=== PATIENT | female | born 1965 | race American Indian/Alaskan Native ===

== ENCOUNTER 2016-09-08 16:51 | Emergency (ER) | payer SELFPAY ==
[2016-09-08] MEDS ORDERED: CATAPRES PO ONE (17:18)
[2016-09-08 21:00] VITALS: BP 190/118
--- NOTE | 2016-09-08 21:03 | Emergency Department Report ---
ED Extremity Problem HPI - General Chief complaint: Extremity Problem,Nontraumatic Stated complaint: SEVERE SWELLING/PAIN FINGERS Time Seen by Provider: 09/08/16 20:56 Source: patient Mode of arrival: Ambulatory Limitations: No Limitations - History of Present Illness Initial comments: 11-year-old female comes in with complaint of swelling in her left hand actually her fourth and fifth digit for 3 weeks. The patient denies any trauma to her hand or finger. She does minute to having this type of issue last October 2015 but resolved on its own. Patient's concerned that she may have diabetes. She does not have a health care provider at this time. Upon review of chart noticed that her blood pressure is 190/118 she was given clonidine 0.2 mg in triage. Recheck of blood pressure came down to 152/86 heart rate 83. Patient denies any history of hypertension. Allergy to lidocaine. Last LMP 08/12/2016. - Related Data Previous Rx's Medication Instructions Recorded Last Taken Type Ibuprofen [Motrin 600 MG tab] 600 mg PO Q8H PRN #30 tablet 09/08/16 Unknown Rx Sulfamethoxazole/Trimethoprim 1 each PO BID #20 tablet 09/08/16 Unknown Rx [Bactrim DS TAB] Allergies Allergy/AdvReac Type Severity Reaction Status Date / Time lidocaine Allergy Angioedema Verified 09/08/16 17:07 ED Review of Systems ROS: Stated complaint: SEVERE SWELLING/PAIN FINGERS Other details as noted in HPI Skin: other (left finger swelling and pain) ED Past Medical Hx - Medications Home Medications: Home Medications Medication Instructions Recorded Confirmed Last Taken Type Ibuprofen [Motrin 600 MG tab] 600 mg PO Q8H PRN #30 tablet 09/08/16 Unknown Rx Sulfamethoxazole/Trimethoprim 1 each PO BID #20 tablet 09/08/16 Unknown Rx [Bactrim DS TAB] ED Physical Exam - General Limitations: No Limitations - Expanded Upper Extremity Exam Left Hand Wrist exam: Present: tenderness (left fifth digit), swelling (left fifth digit), subungual hematoma - Neurological Exam Neurological exam: Present: alert, altered - Psychiatric Psychiatric exam: Present: normal affect, normal mood - Skin Skin exam: Present: warm, dry, intact, other (left fifth digit on hand edematous erythematous and tender to palpate) ED Course Vital Signs 09/08/16 09/08/16 09/08/16 17:08 17:30 20:58 Temperature 98.3 F Pulse Rate 70 71 83 Respiratory 20 Rate Blood Pressure 190/118 190/118 Blood Pressure 152/86 [Right] O2 Sat by Pulse 99 Oximetry ED Medical Decision Making - Lab Data Result diagrams: 09/08/16 21:08 09/08/16 21:08 - Medical Decision Making Been evaluated by this provider. Treatment plan is for patient to have a CBC and CMP and uric acid. Does come back negative we will treat patient for localized cellulitis. Patient verbalized understanding. Review of labs shows uric acid within normal limits is no elevated WBCs. We would treat patient as an acute cellulitis to her finger. Will have patient follow up with outpatient 3-[address] patient on Bactrim double strength 1 tablet by mouth twice a day 10 days as well as a prescription for ibuprofen 600 mg one tablet by mouth 3 times a day when necessary for pain. Verbalized understanding. Critical care attestation.: If time is entered above; I have spent that time in minutes in the direct care of this critically ill patient, excluding procedure time. ED Disposition Clinical Impression: Cellulitis and abscess of finger, unspecified Disposition: DISCHARGED TO HOME OR SELFCARE Is pt being admited?: No Does the pt Need Aspirin: No Condition: Stable Instructions: Cellulitis (ED) Additional Instructions: Advised patient's complete all medication as prescribed. Follow-up with [facility] within 3-5 days. Prescriptions: Sulfamethoxazole/Trimethoprim [Bactrim DS TAB] 1 each PO BID #20 tablet Ibuprofen [Motrin 600 MG tab] 600 mg PO Q8H PRN #30 tablet PRN Reason: Pain Referrals: PRIMARY CARE, [Primary Care Provider] - 3-5 Days [facility] [Outside] - 3-5 Days Forms: Work/School Release Form(ED)
[2016-09-08 21:26] LABS: Hematocrit 34.4 % (30.3-42.9); Hemoglobin 11.1 gm/dl (10.1-14.3); Mean Corpuscular HGB Conc 32 % (30-34); Mean Corpuscular Hemoglobin 26 pg (28-32); Mean Corpuscular Volume 81 fl (79-97); Platelet Count 286 K/mm3 (140-440); Red Blood Count 4.24 M/mm3 (3.65-5.03); White Blood Count 10.1 K/mm3 (4.5-11.0)
[2016-09-08 21:47] LABS: Chloride 100.8 mmol/L (98-107); Potassium 4.2 mmol/L (3.6-5.0); Sodium 137 mmol/L (137-145)
[2016-09-08 22:34] LABS: Anion Gap 18 mmol/L; Blood Urea Nitrogen 14 mg/dL (7-17); Carbon Dioxide 22 mmol/L (22-30); Glucose 90 mg/dL (65-100)
[2016-09-08 23:03] LABS: Uric Acid 3.9 mg/dL (3.5-7.6)
[2016-09-08] MEDS ORDERED: BACTRIM DS PO ONE (23:29)
[2016-09-08] MEDS ORDERED: MOTRIN PO ONE (23:29)
== END 2016-09-08 23:34 | disposition home or self-care (01) ==
LOC: ED 16:51
DX: L03.012 Cellulitis of left finger (principal); L02.512 Cutaneous abscess of left hand
CPT/HCPCS: 36415; 80048; 84550; 85027; 99283

== ENCOUNTER 2016-10-11 13:58 | Inpatient (IN) | payer SELFPAY ==
[2016-10-11] MEDS ORDERED: MORPHINE IV ONE (23:50)
--- NOTE | 2016-10-12 00:01 | Emergency Department Report ---
ED General Adult HPI - General Chief complaint: Extremity Injury, Upper Stated complaint: LEFT HAND PINKY INFECTED Time Seen by Provider: 10/11/16 23:39 Source: patient, RN notes reviewed, old records reviewed Mode of arrival: Ambulatory Limitations: No Limitations - History of Present Illness Initial comments: This is a 51-year-old female. She is previously unknown to me. She does not have a primary care doctor, and she is right-hand dominant. The patient was seen here in September for presumed finger infection. She was given Bactrim tablets at that time. She reports that her left distal fingertip has become progressively more black, minimally swollen and tender. She reports draining some puslike material. She also reports that on the medial aspect of her fourth digit there is some swelling and bubbling. No fevers or chills. No chest pain or shortness of breath. No tingling or numbness. No weakness. Symptoms are constant. Pain increases with palpation and range of motion. It decreases with rest. -: Gradual Location: left, upper extremity Severity scale (0 -10): 6 Quality: aching Consistency: constant Improves with: rest Worsens with: movement Associated Symptoms: denies: confusion, chest pain, cough, diaphoresis, fever/ chills, headaches, loss of appetite, malaise, nausea/vomiting, rash, seizure, shortness of breath, syncope, weakness - Related Data Previous Rx's Medication Instructions Recorded Last Taken Type Levofloxacin [Levaquin TAB] 500 mg PO QDAY #7 tablet 10/14/16 Unknown Rx amLODIPine [Norvasc] 5 mg PO QDAY #30 tablet 10/14/16 Unknown Rx traMADol [Ultram 50 MG tab] 50 mg PO Q6HR PRN #30 tablet 10/14/16 Unknown Rx Allergies Allergy/AdvReac Type Severity Reaction Status Date / Time Unable to Assess Allergy Unverified 10/11/16 14:48 ED Review of Systems ROS: Stated complaint: LEFT HAND PINKY INFECTED Other details as noted in HPI Constitutional: denies: malaise Eyes: denies: vision change ENT: denies: epistaxis Respiratory: denies: cough Cardiovascular: denies: chest pain Gastrointestinal: denies: abdominal pain Musculoskeletal: joint swelling, arthralgia, myalgia Skin: rash, lesions Neurological: denies: weakness Psychiatric: anxiety ED Past Medical Hx - Past Medical History Hx Diabetes: Yes (boderline) Additional medical history: preeclampsia - Surgical History Past Surgical History?: Yes Additional Surgical History: - Social History Smoking Status: Never Smoker Substance Use Type: None - Medications Home Medications: Home Medications Medication Instructions Recorded Confirmed Last Taken Type Levofloxacin [Levaquin TAB] 500 mg PO QDAY #7 tablet 10/14/16 Unknown Rx amLODIPine [Norvasc] 5 mg PO QDAY #30 tablet 10/14/16 Unknown Rx traMADol [Ultram 50 MG tab] 50 mg PO Q6HR PRN #30 tablet 10/14/16 Unknown Rx ED Physical Exam - General Limitations: No Limitations General appearance: alert, in no apparent distress - Head Head exam: Present: atraumatic, normocephalic - Eye Eye exam: Present: normal appearance - ENT ENT exam: Present: normal exam, normal orophraynx, mucous membranes moist, normal external ear exam - Neck Neck exam: Present: normal inspection, full ROM. Absent: tenderness, meningismus - Respiratory Respiratory exam: Present: normal lung sounds bilaterally. Absent: respiratory distress, wheezes, rales, rhonchi, stridor, decreased breath sounds - Cardiovascular Cardiovascular Exam: Present: normal rhythm, tachycardia, normal heart sounds. Absent: systolic murmur, diastolic murmur, rubs, gallop - GI/Abdominal GI/Abdominal exam: Present: soft, normal bowel sounds. Absent: distended, tenderness, guarding, rebound, rigid, pulsatile mass - Extremities Exam Extremities exam: Present: full ROM, tenderness, normal capillary refill, other (right upper extremity is unremarkable, and a left lower extremity and right lower extremity are both unremarkable. There are 2+ pulses in 4 extremities. The left distal pinky is swollen, with a necrotic tip, and purulent discharge. Swelling goes from the DIP to the pip. The tendons appear to be intact functionally, lumbricals are intact. There are 2+ pulses in 4 extremities. There is some bubbling and discoloration to the medial aspect of the fourth digit. Tendon function out is intact in the fourth digit.). Absent: calf tenderness - Back Exam Back exam: Present: normal inspection - Neurological Exam Neurological exam: Present: alert, oriented X3 - Psychiatric Psychiatric exam: Present: normal affect, normal mood - Skin Skin exam: Present: erythema ED Course Vital Signs 02/02/1910/11/16 10/11/16 14:49 23:12 23:28 Temperature 98.1 F 98.7 F 98.3 F Pulse Rate 104 H 77 72 Respiratory 18 18 18 Rate Blood Pressure 159/92 188/102 Blood Pressure 216/97 [Right] O2 Sat by Pulse 100 100 99 Oximetry 10/12/16 10/12/16 10/12/16 01:08 01:10 01:20 Temperature Pulse Rate 73 83 Respiratory 11 L 10 L 11 L Rate Blood Pressure 165/84 149/79 Blood Pressure [Right] O2 Sat by Pulse 99 100 Oximetry 10/12/16 10/12/16 10/12/16 01:30 01:40 01:50 Temperature Pulse Rate 79 85 84 Respiratory 12 13 12 Rate Blood Pressure 146/73 146/73 152/82 Blood Pressure [Right] O2 Sat by Pulse 99 99 100 Oximetry 10/12/16 10/12/16 10/12/16 02:00 02:10 02:20 Temperature Pulse Rate 88 85 93 H Respiratory 12 11 L 13 Rate Blood Pressure 158/81 158/81 168/81 Blood Pressure [Right] O2 Sat by Pulse 99 99 100 Oximetry 10/12/16 10/12/16 10/12/16 02:30 02:40 02:50 Temperature Pulse Rate 80 81 86 Respiratory 11 L 12 17 Rate Blood Pressure 162/87 162/87 154/80 Blood Pressure [Right] O2 Sat by Pulse 99 99 99 Oximetry - Reevaluation(s) Reevaluation #1: 10/12/16 00:56 Differential diagnosis: Cellulitis, osteomyelitis, vasculitis Assessment and plan: 51-year-old female with pain, swelling, warmth and redness to the fifth digit with some distal necrosis. Questionable involvement on the medial aspect of the fourth digit. Tendon function is intact. On my bedside ultrasound, there is good Doppler waveform interrogation to the ulnar and radial artery of the upper extremity. Leukocytosis is appreciated. Concern for osteomyelitis versus cellulitis versus vasculitis. Blood cultures and wound cultures will be ordered. Page is placed to orthopedic surgery, I am awaiting a call back. Patient does not have a primary care doctor that she can follow up with and she does not have insurance. Given aggressive involvement of an upper extremity digit with possible necrosis, I do not believe the patient is suitable for outpatient management at this time. She will require IV antibiotics, possible biopsy, probable debridement, possible evaluation by infectious disease. Case is discussed with the Hospital physician, Dr. Haney, who accepts the patient to her service. Reevaluation #2: 10/12/16 00:58 patient also noted to be fairly hypertensive, hydralazine is ordered for blood pressure control. Reevaluation #3: 10/12/16 01:37 Days discussed with orthopedic surgeon, Dr. Gay, his group will follow as a consult. ED Medical Decision Making - Lab Data Result diagrams: 10/13/16 04:41 10/13/16 04:41 Vital Signs 10/11/16 10/11/16 10/11/16 14:49 23:12 23:28 Temperature 98.1 F 98.7 F 98.3 F Pulse Rate 104 H 77 72 Respiratory 18 18 18 Rate Blood Pressure 159/92 188/102 Blood Pressure 216/97 [Right] O2 Sat by Pulse 100 100 99 Oximetry Lab Results 10/11/16 10/12/16 10/12/16 Range/Units 14:53 00:21 00:21 WBC 12.0 H (4.5-11.0) K/mm3 RBC 4.38 (3.65-5.03) M/mm3 Hgb 11.3 (10.1-14.3) gm/dl Hct 35.9 (30.3-42.9) % MCV 82 (79-97) fl MCH 26 L (28-32) pg MCHC 31 (30-34) % RDW 16.7 H (13.2-15.2) % Plt Count 253 (140-440) K/mm3 Lymph % (Auto) 27.3 (13.4-35.0) % Calloway % (Auto) 5.8 (0.0-7.3) % Eos % (Auto) 1.1 (0.0-4.3) % Baso % (Auto) 0.8 (0.0-1.8) % Lymph # 3.3 (1.2-5.4) K/mm3 Calloway # 0.7 (0.0-0.8) K/mm3 Eos # 0.1 (0.0-0.4) K/mm3 Baso # 0.1 (0.0-0.1) K/mm3 Seg Neutrophils % 65.0 (40.0-70.0) % Seg Neutrophils # 7.8 H (1.8-7.7) K/mm3 ESR 5 (0-20) mm/Hr Sodium 134 L (137-145) mmol/L Potassium 3.6 (3.6-5.0) mmol/L Chloride 97.9 L (98-107) mmol/L Carbon Dioxide 22 (22-30) mmol/L Anion Gap 18 mmol/L BUN 11 (7-17) mg/dL Creatinine 0.8 (0.7-1.2) mg/dL Estimated GFR > 60 ml/min BUN/Creatinine Ratio 13.75 % Glucose 93 (65-100) mg/dL POC Glucose 169 H (70-105) Calcium 9.1 (8.4-10.2) mg/dL Total Creatine Kinase (30-135) units/L 10/12/16 Range/Units 00:21 WBC (4.5-11.0) K/mm3 RBC (3.65-5.03) M/mm3 Hgb (10.1-14.3) gm/dl Hct (30.3-42.9) % MCV (79-97) fl MCH (28-32) pg MCHC (30-34) % RDW (13.2-15.2) % Plt Count (140-440) K/mm3 Lymph % (Auto) (13.4-35.0) % Calloway % (Auto) (0.0-7.3) % Eos % (Auto) (0.0-4.3) % Baso % (Auto) (0.0-1.8) % Lymph # (1.2-5.4) K/mm3 Calloway # (0.0-0.8) K/mm3 Eos # (0.0-0.4) K/mm3 Baso # (0.0-0.1) K/mm3 Seg Neutrophils % (40.0-70.0) % Seg Neutrophils # (1.8-7.7) K/mm3 ESR (0-20) mm/Hr Sodium (137-145) mmol/L Potassium (3.6-5.0) mmol/L Chloride (98-107) mmol/L Carbon Dioxide (22-30) mmol/L Anion Gap mmol/L BUN (7-17) mg/dL Creatinine (0.7-1.2) mg/dL Estimated GFR ml/min BUN/Creatinine Ratio % Glucose (65-100) mg/dL POC Glucose (70-105) Calcium (8.4-10.2) mg/dL Total Creatine Kinase 58 (30-135) units/L - EKG Data 10/12/16 01:47 Normal sinus, 85 bpm, normal intervals, normal axis, poor progression, atrial enlargement, not morphologically consistent with STEMI. - Radiology Data Radiology results: image reviewed interpreted by me: left hand x ray shows no fracture no dislocation soft tissue swelling of 5th digit Critical care attestation.: If time is entered above; I have spent that time in minutes in the direct care of this critically ill patient, excluding procedure time. ED Disposition Clinical Impression: Cellulitis of finger of left hand, Hypertensive urgency Disposition: OP ADMITTED IP TO THIS HOSP Is pt being admited?: Yes Condition: Good
[2016-10-12 00:32] LABS: Basophils % (Auto) 0.8 % (0.0-1.8); Eosinophils % (Auto) 1.1 % (0.0-4.3); Hematocrit 35.9 % (30.3-42.9); Hemoglobin 11.3 gm/dl (10.1-14.3); Mean Corpuscular HGB Conc 31 % (30-34); Mean Corpuscular Volume 82 fl (79-97); Platelet Count 253 K/mm3 (140-440); Red Blood Count 4.38 M/mm3 (3.65-5.03); Red Cell Distribution Width 16.7 % (13.2-15.2)
[2016-10-12 00:41] LABS: Mean Corpuscular Hemoglobin 26 pg (28-32)
[2016-10-12 00:51] LABS: Anion Gap 18 mmol/L; BUN/Creatinine Ratio 13.75; Blood Urea Nitrogen 11 mg/dL (7-17); Calcium 9.1 mg/dL (8.4-10.2); Carbon Dioxide 22 mmol/L (22-30); Chloride 97.9 mmol/L (98-107); Glucose 93 mg/dL (65-100); Potassium 3.6 mmol/L (3.6-5.0); Sodium 134 mmol/L (137-145)
[2016-10-12] MEDS ORDERED: CLEOCIN 600 MG/50 mL 600 MG/50 ML BAG IV ONE (00:53)
[2016-10-12 00:57] LABS: Erythrocyte Sedimentation Rate 5 mm/Hr (0-20)
[2016-10-12] MEDS ORDERED: APRESOLINE IV ONE (00:58)
--- NOTE | 2016-10-12 02:22 | Admit Criteria Form ---
Admission Criteria Documentation: CELLULITIS Clinical Indications for Admission to Inpatient Care (Place 'X' for any and all applicable criteria): Admission is indicated for ANY ONE of the following(1)(2)(3)(4)(5): [ ]I. Limb-threatening infection [ ]II. High-risk comorbid condition as indicated by ANY ONE of the following: [ ]a) Uncontrolled diabetes (eg, HbA1c greater than 10% (0.1)) [ ]b) Cirrhosis [ ]c) Neutropenia [ ]d) Asplenia [ ]e) Immunosuppression [ ]f) Symptomatic heart failure [ ]III. Failure of outpatient therapy as indicated by ALL of the following: [ ]a) Progression or no improvement after adequate trial (minimum of 48 hours, with longer period for stable lower extremity infection) [ ]b) Adequate antibiotic regimen as indicated by use of ANY ONE of the following: [ ]i) First-generation cephalosporin (e.g., cephalexin) [ ]ii) Antistaphylococcal penicillin (e.g., dicloxacillin) [ ]iii) Penicillin-allergic patient regimen (clindamycin, extended-spectrum fluoroquinolone, or doxycycline) [ ]iv) Resistant organism (eg, methicillin-resistant Staphylococcus aureus) regimen (6) [ ]c) Outpatient intravenous therapy regimen is not appropriate due to ANY ONE of the following. (7)(8)(9)(10): [ ]i) It was tried and was not successful (eg, progression of infection). [ ]ii) It is not available or cannot be arranged in a clinically appropriate time frame (e.g., the next day). [ ]iii) Clinical presentation (eg, acuity of infection, rapidity of progression, confirmed or suspected bacteremia) is judged to require ALL of the following: [ ]1) Immediate initiation of intravenous therapy ( eg, cannot wait for next day) [ ]2) Intensity of patient monitoring and observation (eg, vital sign measurement, checks for infection progression) that cannot be provided at other than inpatient level of care [ ]IV. Mental status changes [ ]V. Bacteremia [ ]. Hemodynamic instability [ ]VII. Suspected necrotizing soft tissue infection (e.g., gas in tissue)(11)( 12) [ ]VIII. Orbital infection (13)(14) [ ]IX. Associated surgical procedure (e.g., abscess drainage, debridement) not amenable to outpatient, emergency department, or observation care [ ]X. Cutaneous gangrene [ ]XI. High fever (temperature greater than 39.5 degrees C (103.1 degrees F) (oral)) not responsive to outpatient, emergency department, or observation care therapy [ X]XIII. Inpatient admission required rather than observation care (Also use Cellulitis: Observation Care as appropriate) because of ANY ONE of the following : [ ]a) Periorbital or perineal infection that is severe or worsening [ ]b) Severe pain requiring acute inpatient management [ ]c) IV fluid to replace significant ongoing (e.g., for over 24 hours) losses (greater than 3L/m2 per day) [ ]d) Compartment syndrome monitoring (17) [ ]e) Strict or protective (eg, laminar flow) isolation [ ]f) Urgent debridement or skin grafting [ ]g) Bone or joint debridement [ ]h) Immediate inpatient surgery [X ]i) Other condition, treatment or monitoring requiring inpatient admission Extended stay beyond goal length of stay may be needed for (1)(18): [ ]a) Necrotizing soft tissue infection or fasciitis [ ]b) Gram-negative infection [ ]c) Methicillin-resistant Staphylococcal aureus (MRSA) infection [ ]d) Peripheral venous insufficiency with cellulitis [ ]e) Extensive edema [ ]f) Sepsis or continued Hemodynamic instability [ ]g) Continued high fever or mental status change [ ]h) Bacteremia [ ]i) Active serious comorbid conditions ( eg, heart failure, renal insufficiency) The original [facility] content created by [employer] has been revised. The portions of the content which have been revised are identified through the use of italic text or in bold, and [facility] has neither reviewed nor approved the modified material. All other unmodified content is copyright [facility] [employer] Please see references footnoted in the original [facility] [employer] edition 2016 Admission Criteria Met: Yes
[2016-10-12] MEDS ORDERED: DULCOLAX PR PRN (02:40)
[2016-10-12] MEDS ORDERED: MILK OF MAGNESIA PO PRN (02:40)
[2016-10-12] MEDS ORDERED: ZOFRAN IV PRN (02:40)
[2016-10-12] MEDS ORDERED: APRESOLINE IV PRN (02:40)
--- NOTE | 2016-10-12 02:51 | History and Physical Report ---
History of Present Illness Date of examination: 10/12/16 History of present illness: 51 year old woman with history of borderline diabetes comes to the emergency room for worsening discolration of her finger.The patient was seen in the emergency room on September 08 for pain and discoloration of the left 5th digit. She states that this happened because her house was cold. The patient was discharged on bactrim. She states she completed antibiotic, she later developed purulent discharge. She started using hydrogen peroxide and warm water to clean the finger. She followed at [facility] and they sent her to the emergency room for further care Patient denies chest pain, palpitation, shortness of breath, cough, abdominal pain, hematochezia, dysuria, frequency, focal weakness, dysarthria, fever chills , polydipsia polyuria, hot or cold intolerance, easy bruisability, or rash or bleeding from mucosal membrane, rhinorrhea, epistaxis, earache, tinnitus, blurry vision, eye discharge, anxiety, depression. Other review of systems negative PAST SURGICAL HISTORY:None SOCIAL HISTORY:Denies alcohol, tobacco and drugs FAMILY HISTORY:Hypertension Medications and Allergies Allergies Allergy/AdvReac Type Severity Reaction Status Date / Time Unable to Assess Allergy Unverified 10/11/16 14:48 Home Medications Medication Instructions Recorded Confirmed Last Taken Type Levofloxacin [Levaquin TAB] 500 mg PO QDAY #7 tablet 10/14/16 Unknown Rx amLODIPine [Norvasc] 5 mg PO QDAY #30 tablet 10/14/16 Unknown Rx traMADol [Ultram 50 MG tab] 50 mg PO Q6HR PRN #30 tablet 10/14/16 Unknown Rx Active Meds: Active Medications Acetaminophen (Tylenol) 650 mg PO Q4H PRN PRN Reason: Pain MILD(1-3)/Fever >100.5/SARABIA Bisacodyl (Dulcolax) 10 mg [place] QDAY PRN PRN Reason: Constipation unrelieved by MOM Enoxaparin Sodium (Lovenox) 40 mg SUB-Q QDAY GRABIEL Hydralazine HCl (Apresoline) 5 mg IV Q6HR PRN PRN Reason: Hypertension Piperacillin Sod/Tazobactam Sod (Zosyn/Ns 4.5gm/100ml) mls @ 100 mls/30 min IV Q8H GRABIEL Magnesium Hydroxide (Milk Of Magnesia) 30 ml PO Q4H PRN PRN Reason: Constipation Morphine Sulfate (Morphine) 2 mg IV Q4H PRN PRN Reason: Pain, Moderate (4-6) Ondansetron HCl (Zofran) 4 mg IV Q8H PRN PRN Reason: N/V unrelieved by Reglan Exam - Physical Exam Narrative exam: Gen. appearance: Patient lying in bed, no apparent distress HEENT: Normocephalic, atraumatic, pupils equally round and reactive to light, extraocular movement intact, and no sclericterus,. No JVD or thyromegaly or nodule,neck supple, no carotid bruit ,mucous membranes moist, no exudate or erythema Heart: S1, S2, regular rate and rhythm Lungs: Clear to auscultation bilaterally, breathing comfortable Abdomen: Positive bowel sounds, nontender, nondistended, no organomegaly Extremity: Left 5th digit swollen, dark, tender, No edema, cyanosis, clubbing Skin: No rash, nodules, warm, dry Neuro: Oriented 3, cranial nerves II-12 intact, speech is fluent, motor and sensory intact - Constitutional Vitals: Temp Pulse Resp BP Pulse Ox 98.3 F 72 18 216/97 99 10/11/16 23:28 10/11/16 23:28 10/11/16 23:28 10/11/16 23:28 10/11/16 23:28 Results - Labs CBC & Chem 7: 10/13/16 04:41 10/13/16 04:41 Labs: Abnormal lab results 10/11/16 10/12/16 10/12/16 Range/Units 14:53 00:21 00:21 WBC 12.0 H (4.5-11.0) K/mm3 MCH 26 L (28-32) pg RDW 16.7 H (13.2-15.2) % Seg Neutrophils # 7.8 H (1.8-7.7) K/mm3 Sodium 134 L (137-145) mmol/L Chloride 97.9 L (98-107) mmol/L POC Glucose 169 H (70-105) Assessment and Plan Cellulitis of the finger Hypertension malignant History of borderline diabetes Admit to medicine Start IV Zosyn, consult surgery Start IV hydralazine, Norvasc, IV morphine Check hemoglobin A1c, start DVT prophylaxis follow xray of hand, wound culture
[2016-10-12] MEDS: MORPHINE IV PRN ×2 (03:11→08:44)
[2016-10-12] MEDS ORDERED: ZOSYN/NS 4.5GM/100ML 4.5 GM/100 ML VIAL IV ONE (04:30)
[2016-10-12] MEDS: ZOSYN/NS 4.5GM/100ML 4.5 GM/100 ML VIAL IV SCH ×3 (04:33→21:01)
[2016-10-12] MEDS: TYLENOL PO PRN ×3 (05:41→20:56)
--- NOTE | 2016-10-12 09:04 | XRay Report ---
LEFT HAND, 2 VIEWS: HISTORY: Left hand pain. FINDINGS: There is mild soft tissue swelling at the level of the metacarpophalangeal joints. Normal bone mineralization. No acute osseous findings or joint pathology is appreciated. IMPRESSION: Mild soft tissue swelling.
[2016-10-12] MEDS ORDERED: NORVASC PO SCH (10:00)
--- NOTE | 2016-10-12 10:45 | Event Note ---
Date: 10/12/16 Patient with left 5th finger dark. Celullitis versus gangrene. She was seen and examined. Continue iv Antibiotics.
[2016-10-12] MEDS ORDERED: MORPHINE IV PRN (11:10)
[2016-10-12] MEDS: NORVASC PO SCH (11:14)
[2016-10-12] MEDS: LOVENOX SUB-Q SCH (11:15)
[2016-10-12] MEDS ORDERED: FLUARIX QUAD 2016-2017(36 MOS+) IM ONE (12:00)
[2016-10-12] MEDS ORDERED: MORPHINE IV ONE (12:00)
--- NOTE | 2016-10-12 14:41 | Consultation ---
History of Present Illness - HPI Consult date: 10/12/16 Consult reason: joint pain Medications and Allergies Allergies Allergy/AdvReac Type Severity Reaction Status Date / Time Unable to Assess Allergy Unverified 10/11/16 14:48 Home Medications Medication Instructions Recorded Confirmed Last Taken Type Ibuprofen [Motrin 600 MG tab] 600 mg PO Q8H PRN #30 tablet 09/08/16 Unknown Rx Sulfamethoxazole/Trimethoprim 1 each PO BID #20 tablet 09/08/16 Unknown Rx [Bactrim DS TAB] Active Meds: Active Medications Acetaminophen (Tylenol) 650 mg PO Q4H PRN PRN Reason: Pain MILD(1-3)/Fever >100.5/SAR[place]IA Last Admin: 10/12/16 05:41 Dose: 650 mg Amlodipine Besylate (Norvasc) 5 mg PO QDAY [facility] Last Admin: 10/12/16 11:14 Dose: 5 mg Bisacodyl (Dulcolax) 10 mg DC QDAY PRN PRN Reason: Constipation unrelieved by MOM Enoxaparin Sodium (Lovenox) 40 mg SUB-Q QDAY [facility] Last Admin: 10/12/16 11:15 Dose: 40 mg Hydralazine HCl (Apresoline) 5 mg IV Q6HR PRN PRN Reason: Hypertension Last Admin: 10/12/16 05:42 Dose: 5 mg Piperacillin Sod/Tazobactam Sod (Zosyn/Ns 4.5gm/100ml) 4.5 gm in 100 mls @ 200 mls/hr IV Q8H [facility] Last Admin: 10/12/16 12:45 Dose: Not Given Magnesium Hydroxide (Milk Of Magnesia) 30 ml PO Q4H PRN PRN Reason: Constipation Morphine Sulfate (Morphine) 4 mg IV Q4H PRN PRN Reason: Pain , Severe (7-10) Ondansetron HCl (Zofran) 4 mg IV Q8H PRN PRN Reason: N/V unrelieved by Reglan Assessment and Plan 51 year old woman with history of borderline diabetes admited by emergency room for worsening discoloration of her finger.The patient was seen in the emergency room on September 08 for pain and discoloration of the left 5th digit. She states that this happened because her house was cold. The patient was discharged on bactrim. She complains that her hand hurts nd that the skin changes have now spread to the 4th digit. There is a necrotic changes at the tip of the 5th finger and some pus discharge. There is good temperature on the forearm and hand. the 4th and 5th fingers are dusky/purplish. limited AROM of 5th DIP joint. Nail appears loose with a serous small drainage. Impression paronichia of 5th finger; Cyanosis, vascular impairment? REC antibiotics and observation.
--- NOTE | 2016-10-12 14:43 | Consultation ---
History of Present Illness - Reason for Consult Consult date: 10/12/16 discoloration of the left fifth digit Requesting physician: MARAL TRUJILLO - History of Present Illness Patient presents with discoloration pain and gangrenous tip of the left fifth digit. Patient originally presented a month ago to the emergency room with the painful swollen left digit and was treated with antibiotics. Patient reports the worsening of the discoloration of the finger and more pain. Patient feels that this started because her hand was cold. Patient reports pain in her left digits if touching something called. However, she does not have the symptoms in the other hand or feet. Patient denies any history of DVT, abnormal heart rhythm, or any symptoms that could be consistent with thoracic outlet syndrome. 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 Patient denies ever smoking. Past History Past Medical History: No medical history, diabetes Past Surgical History: No surgical history Social history: denies: smoking, alcohol abuse, IV drug use Family history: hypertension Medications and Allergies Allergies Allergy/AdvReac Type Severity Reaction Status Date / Time Unable to Assess Allergy Unverified 10/11/16 14:48 Home Medications Medication Instructions Recorded Confirmed Last Taken Type Ibuprofen [Motrin 600 MG tab] 600 mg PO Q8H PRN #30 tablet 09/08/16 Unknown Rx Sulfamethoxazole/Trimethoprim 1 each PO BID #20 tablet 09/08/16 Unknown Rx [Bactrim DS TAB] Active Meds: Active Medications Acetaminophen (Tylenol) 650 mg PO Q4H PRN PRN Reason: Pain MILD(1-3)/Fever >100.5/[place] Last Admin: 10/12/16 05:41 Dose: 650 mg Amlodipine Besylate (Norvasc) 5 mg PO QDAY [facility] Last Admin: 10/12/16 11:14 Dose: 5 mg Bisacodyl (Dulcolax) 10 mg UT QDAY PRN PRN Reason: Constipation unrelieved by MOM Enoxaparin Sodium (Lovenox) 40 mg SUB-Q QDAY [facility] Last Admin: 10/12/16 11:15 Dose: 40 mg Hydralazine HCl (Apresoline) 5 mg IV Q6HR PRN PRN Reason: Hypertension Last Admin: 10/12/16 05:42 Dose: 5 mg Piperacillin Sod/Tazobactam Sod (Zosyn/Ns 4.5gm/100ml) 4.5 gm in 100 mls @ 200 mls/hr IV Q8H [facility] Last Admin: 10/12/16 12:45 Dose: Not Given Magnesium Hydroxide (Milk Of Magnesia) 30 ml PO Q4H PRN PRN Reason: Constipation Morphine Sulfate (Morphine) 4 mg IV Q4H PRN PRN Reason: Pain , Severe (7-10) Ondansetron HCl (Zofran) 4 mg IV Q8H PRN PRN Reason: N/V unrelieved by Reglan Review of Systems All systems: negative Exam - Constitutional Vitals: Temp Pulse Resp BP Pulse Ox 98.5 F 107 H 18 130/78 99 10/12/16 08:00 10/12/16 08:00 10/12/16 08:00 10/12/16 11:14 10/12/16 08:00 General appearance: Present: no acute distress, well-nourished - EENT Eyes: Present: PERRL, EOM intact ENT: hearing intact - Neck Neck: Present: supple, normal ROM. Absent: masses or JVD, carotid bruits - Respiratory Respiratory effort: normal Respiratory: bilateral: CTA - Cardiovascular Rhythm: regular - Extremities Extremities: pulses intact (normal appearing bilateral axillary, brachial, radial pulses), pulses symmetrical, No edema, normal temperature Extremity abnormal: cyanosis (left fifth digit), black (gangrenous tip of the left fifth digit), tenderness (left fifth digit) - Abdominal General gastrointestinal: Present: deferred Female genitourinary: Present: deferred - Rectal Rectal Exam: deferred - Integumentary Integumentary: Present: clear - Musculoskeletal Musculoskeletal: strength equal bilaterally - Psychiatric Psychiatric: appropriate mood/affect, intact judgment & insight, memory intact, cooperative Results - Labs CBC & Chem 7: 10/12/16 00:21 10/12/16 00:21 Assessment and Plan Gangrenous tip and discoloration of the left fifth digit. No evidence of arterial occlusive disease given intact pulses and warm hands. Doubt Raynaud's phenomenon because symptoms are localized to the digits on the left hand. This is most likely a focal digital lesion. However, although less likely, this could potentially be an embolization from a proximal source. That includes potentially heart, thoracic aorta, or any vessels in the left arm. There is no evidence the patient has a thoracic outlet syndrome. Plan: Will rule out embolic source by obtaining left upper extremity arterial duplex. We'll also obtain a CTA of the chest to rule out a thoracic aortic involvement. A consideration should be given to 2-D echo to rule out any potential thrombus in the heart as well as to rule out patent foramen ovale which could potentially be a source of paradoxical embolus. If all of this is negative, patient should consider seeing a a hand specialist.
[2016-10-12] MEDS ORDERED: NACL ONE (15:56)
--- NOTE | 2016-10-12 17:01 | Cat Scan Report ---
CTA chest: History: Gangrenous finger. Evaluation for embolus source. Protocol used for transverse images through the chest and upper abdomen with coronal and sagittal 2-D reformatted images as well as a 3-D image. The pulmonary vessels are well opacified. No filling defects. The cardiac chambers show no filling defects. The thoracic aorta is normal in size and contour. No filling defects. The subclavian arteries are not optimally visualized there is no obvious filling defect or contour deformity identified. No evidence of hilar or mediastinal adenopathy. The central airways are patent. The lungs are clear with no evidence of nodule, infiltrate, or pleural abnormality. Impressions: Unremarkable exam.
[2016-10-13 05:11] LABS: Basophils % (Auto) 0.8 % (0.0-1.8); Eosinophils % (Auto) 2.5 % (0.0-4.3); Hematocrit 33.5 % (30.3-42.9); Hemoglobin 10.9 gm/dl (10.1-14.3); Mean Corpuscular HGB Conc 33 % (30-34); Mean Corpuscular Hemoglobin 26 pg (28-32); Mean Corpuscular Volume 81 fl (79-97); Platelet Count 261 K/mm3 (140-440); Red Blood Count 4.15 M/mm3 (3.65-5.03); Red Cell Distribution Width 16.8 % (13.2-15.2); White Blood Count 9.4 K/mm3 (4.5-11.0)
[2016-10-13 05:22] LABS: Anion Gap 17 mmol/L; BUN/Creatinine Ratio 16.25; Blood Urea Nitrogen 13 mg/dL (7-17); Calcium 8.8 mg/dL (8.4-10.2); Carbon Dioxide 22 mmol/L (22-30); Chloride 100.1 mmol/L (98-107); Glucose 105 mg/dL (65-100); Sodium 135 mmol/L (137-145)
[2016-10-13] MEDS: ZOSYN/NS 4.5GM/100ML 4.5 GM/100 ML VIAL IV SCH ×3 (05:28→19:07)
--- NOTE | 2016-10-13 08:18 | Vascular Lab Report ---
UPPER EXTREMITY ARTERIAL DUPLEX: REASON FOR EXAM: Gangrenous left fifth digit. COMMENTS ON THE RIGHT: Triphasic waveforms are seen proximally. Triphasic waveforms are seen distally. No significant velocity gradients are identified. No significant plaque is identified. Findings are consistent with normal perfusion. COMMENTS ON THE LEFT: Triphasic waveforms are seen proximally. Triphasic waveforms are seen distally. No significant velocity gradients are identified. No significant plaque is identified. Findings are consistent with normal perfusion. IMPRESSION: RIGHT: Essentially normal arterial flow. No evidence of aneurysmal degeneration LEFT:Essentially normal arterial flow. No evidence of aneurysmal degeneration.
--- NOTE | 2016-10-13 08:35 | Event Note ---
Date: 10/13/16 Arterial duplex and chest CTA reviewed. No evidence of arterial occlusive or aneurysmal disease that would be contributing to the gangrenous changes and fifth digit. No further vascular intervention would be of any benefit. This is most likely a local issue not related to overall circulation. Consider hand surgical evaluation.
[2016-10-13] MEDS ORDERED: MORPHINE ONE (09:13)
[2016-10-13] MEDS: MORPHINE IV PRN (09:20)
[2016-10-13] MEDS: LOVENOX SUB-Q SCH (10:56)
[2016-10-13] MEDS: NORVASC PO SCH (10:56)
--- NOTE | 2016-10-13 14:45 | Progress Note ---
Assessment and Plan Assessment and plan: Cellulitis left 5th finger, with dark gangrenous area. Continue IV antibiotics. Vascular surgery and orthopedic surgeon consulted. Gangrene part of left fifth finger Hypertension. Amlodipine 5 mg by mouth daily Borderline diabetes. Fingerstick glucose before every meal and at bedtime Hyponatremia. History Interval history: pain, dark discoloration left 5th finger, No fever Hospitalist Physical - Physical exam Narrative exam: Gen appearance : Not in acute distress HEENT: Normocephalic atraumatic Neck: supple, no JVD. Lungs: Clear to auscultation bilaterally, no wheezing, Heart: S1 and S2 regular, no murmurs, rubs or gallop Abdomen: soft, non-tender, non-distended, normal bowel sounds Extremities: Left 5th finger discolored,dark, area with drainage, no clubbing or cyanosis Neuro : Awake alert oriented 3, no focal signs Psych:calm - Constitutional Vitals: Temp Pulse Resp BP Pulse Ox 98.2 F 78 18 138/81 100 10/13/16 08:18 10/13/16 10:56 10/13/16 08:18 10/13/16 10:56 10/13/16 08:55 General appearance: Present: no acute distress, well-nourished Results - Labs CBC & Chem 7: 10/13/16 04:41 10/13/16 04:41 Labs: Laboratory Last Values WBC 9.4 K/mm3 (4.5-11.0) 10/13/16 04:41 RBC 4.15 M/mm3 (3.65-5.03) 10/13/16 04:41 Hgb 10.9 gm/dl (10.1-14.3) 10/13/16 04:41 Hct 33.5 % (30.3-42.9) 10/13/16 04:41 MCV 81 fl (79-97) 10/13/16 04:41 MCH 26 pg (28-32) L 10/13/16 04:41 MCHC 33 % (30-34) 10/13/16 04:41 RDW 16.8 % (13.2-15.2) H 10/13/16 04:41 Plt Count 261 K/mm3 (140-440) 10/13/16 04:41 Lymph % (Auto) 21.4 % (13.4-35.0) 10/13/16 04:41 Garland % (Auto) 5.7 % (0.0-7.3) 10/13/16 04:41 Eos % (Auto) 2.5 % (0.0-4.3) 10/13/16 04:41 Baso % (Auto) 0.8 % (0.0-1.8) 10/13/16 04:41 Lymph # 2.0 K/mm3 (1.2-5.4) 10/13/16 04:41 Garland # 0.5 K/mm3 (0.0-0.8) 10/13/16 04:41 Eos # 0.2 K/mm3 (0.0-0.4) 10/13/16 04:41 Baso # 0.1 K/mm3 (0.0-0.1) 10/13/16 04:41 Seg Neutrophils % 69.6 % (40.0-70.0) 10/13/16 04:41 Seg Neutrophils # 6.6 K/mm3 (1.8-7.7) 10/13/16 04:41 ESR 5 mm/Hr (0-20) 10/12/16 00:21 Sodium 135 mmol/L (137-145) L 10/13/16 04:41 Potassium 4.0 mmol/L (3.6-5.0) 10/13/16 04:41 Chloride 100.1 mmol/L (98-107) 10/13/16 04:41 Carbon Dioxide 22 mmol/L (22-30) 10/13/16 04:41 Anion Gap 17 mmol/L 10/13/16 04:41 BUN 13 mg/dL (7-17) 10/13/16 04:41 Creatinine 0.8 mg/dL (0.7-1.2) 10/13/16 04:41 Estimated GFR > 60 ml/min 10/13/16 04:41 BUN/Creatinine Ratio 16.25 % 10/13/16 04:41 Glucose 105 mg/dL (65-100) H 10/13/16 04:41 POC Glucose 169 (70-105) H 10/11/16 14:53 Hemoglobin A1c 5.5 % (4-6) 10/12/16 00:21 Calcium 8.8 mg/dL (8.4-10.2) 10/13/16 04:41 Total Creatine Kinase 58 units/L (30-135) 10/12/16 00:21 C-Reactive Protein 0.30 mg/dL (0.00-1.30) 10/12/16 00:21
--- NOTE | 2016-10-13 14:52 | Progress Note ---
Assessment and Plan - Patient Problems (1) Cellulitis of finger of left hand Current Visit: Yes Status: Acute Plan to address problem: Paronychia vs. Atypical Raynaud's cs. fingertip gangrene. Minimal swelling with serous drainage from the nail, nailbed elevated. The finger tip is discolored, not obviously demarcated. I believe that she may need a fingertip amputation,however will wait to the tip is demarcated well. No evidence of flexor tenosynovitis Subjective Date of service: 10/13/16 Interval history: ingertip discoloration, vascular evaluation reviewed. Objective Vital signs: Vital Signs - 12hr 10/13/16 10/13/16 10/13/16 08:18 08:55 10:56 Temperature 98.2 F Pulse Rate 78 Pulse Rate [ 78 Right Radial] Respiratory 18 Rate Blood Pressure 138/81 Blood Pressure 138/81 [Right Arm] O2 Sat by Pulse 97 100 Oximetry - Labs CBC & BMP: 10/13/16 04:41 10/13/16 04:41 Labs: Abnormal lab results 10/13/16 10/13/16 Range/Units 04:41 04:41 MCH 26 L (28-32) pg RDW 16.8 H (13.2-15.2) % Sodium 135 L (137-145) mmol/L Glucose 105 H (65-100) mg/dL
[2016-10-13] MEDS: TYLENOL PO PRN (17:17)
[2016-10-14] MEDS: ZOSYN/NS 4.5GM/100ML 4.5 GM/100 ML VIAL IV SCH ×2 (03:48→11:58)
[2016-10-14] MEDS: TYLENOL PO PRN (03:50)
[2016-10-14] MEDS: NORVASC PO SCH (09:48)
[2016-10-14] MEDS: LOVENOX SUB-Q SCH (09:51)
[2016-10-14 16:17] VITALS: BP 128/78
--- NOTE | 2016-10-14 17:20 | Progress Note ---
Hospitalist Physical - Constitutional Vitals: Temp Pulse Resp BP Pulse Ox 98.1 F 78 16 128/78 98 10/14/16 16:00 10/14/16 16:00 10/14/16 16:00 10/14/16 16:00 10/14/16 08:00 General appearance: Present: no acute distress, well-nourished Results - Labs CBC & Chem 7: 10/13/16 04:41 10/13/16 04:41 Labs: Laboratory Last Values WBC 9.4 K/mm3 (4.5-11.0) 10/13/16 04:41 RBC 4.15 M/mm3 (3.65-5.03) 10/13/16 04:41 Hgb 10.9 gm/dl (10.1-14.3) 10/13/16 04:41 Hct 33.5 % (30.3-42.9) 10/13/16 04:41 MCV 81 fl (79-97) 10/13/16 04:41 MCH 26 pg (28-32) L 10/13/16 04:41 MCHC 33 % (30-34) 10/13/16 04:41 RDW 16.8 % (13.2-15.2) H 10/13/16 04:41 Plt Count 261 K/mm3 (140-440) 10/13/16 04:41 Lymph % (Auto) 21.4 % (13.4-35.0) 10/13/16 04:41 Dillon % (Auto) 5.7 % (0.0-7.3) 10/13/16 04:41 Eos % (Auto) 2.5 % (0.0-4.3) 10/13/16 04:41 Baso % (Auto) 0.8 % (0.0-1.8) 10/13/16 04:41 Lymph # 2.0 K/mm3 (1.2-5.4) 10/13/16 04:41 Dillon # 0.5 K/mm3 (0.0-0.8) 10/13/16 04:41 Eos # 0.2 K/mm3 (0.0-0.4) 10/13/16 04:41 Baso # 0.1 K/mm3 (0.0-0.1) 10/13/16 04:41 Seg Neutrophils % 69.6 % (40.0-70.0) 10/13/16 04:41 Seg Neutrophils # 6.6 K/mm3 (1.8-7.7) 10/13/16 04:41 ESR 5 mm/Hr (0-20) 10/12/16 00:21 Sodium 135 mmol/L (137-145) L 10/13/16 04:41 Potassium 4.0 mmol/L (3.6-5.0) 10/13/16 04:41 Chloride 100.1 mmol/L (98-107) 10/13/16 04:41 Carbon Dioxide 22 mmol/L (22-30) 10/13/16 04:41 Anion Gap 17 mmol/L 10/13/16 04:41 BUN 13 mg/dL (7-17) 10/13/16 04:41 Creatinine 0.8 mg/dL (0.7-1.2) 10/13/16 04:41 Estimated GFR > 60 ml/min 10/13/16 04:41 BUN/Creatinine Ratio 16.25 % 10/13/16 04:41 Glucose 105 mg/dL (65-100) H 10/13/16 04:41 POC Glucose 169 (70-105) H 10/11/16 14:53 Hemoglobin A1c 5.5 % (4-6) 10/12/16 00:21 Calcium 8.8 mg/dL (8.4-10.2) 10/13/16 04:41 Total Creatine Kinase 58 units/L (30-135) 10/12/16 00:21 C-Reactive Protein 0.30 mg/dL (0.00-1.30) 10/12/16 00:21
--- NOTE | 2016-10-14 17:46 | Discharge Summary ---
Providers - Providers Date of Admission: 10/12/16 02:40 Date of discharge: 10/14/16 Attending physician: DANILO MARIE 10/12/16 13:36 Consult to Physician [CONS] Routine Consulting Provider: NOMAN RHODES Reason For Exam: dark discoloration left 5th finger Place consult to:: Dr. Rhodes Notified:: OFFICE Phone number called:: [phone] Was contact made?: Yes If yes, spoke with:: BLACK Time called:: 14:02 Comment:: CARRILLO NOTIFIED Primary care physician: GOSPEL SINGER Hospitalization Condition: Good Hospital course: Patient is 51 yo presented with pain and discoloration left 5th finger. She was diagnosed with cellulitis and gangrene left 5th finger. She was started on iv Antibiotics and admitted. Orthopedic surgeon and Vasc surg were consulted. Arterial Doppler was unremarkable. Orthopedic Surgeon stated patient may need amputation of finger but will need to wait for demarcation. Patient felt better after few days. She was therefore discharged home on oral Levaquin to follow with Orthopedic Surgeon as outpatient. Total time spent on discharge, 34 mins Disposition: DISCHARGED TO HOME OR SELFCARE - Discharge Diagnoses (1) Cellulitis of finger of left hand Status: Acute (2) Hypertensive urgency Status: Acute (3) Gangrene of finger Status: Acute (4) Borderline type 2 diabetes mellitus Status: Chronic Core Measure Documentation - Palliative Care Palliative Care/ Comfort Measures: Not Applicable - Core Measures Any of the following diagnoses?: none Exam - Physical Exam Narrative exam: Gen appearance : Not in acute distress HEENT: Normocephalic atraumatic Neck: supple, no JVD. Lungs: Clear to auscultation bilaterally, no wheezing, Heart: S1 and S2 regular, no murmurs, rubs or gallop Abdomen: soft, non-tender, non-distended, normal bowel sounds Extremities: Left 5th finger discolored,dark, no more drainage, no clubbing or cyanosis Neuro : Awake alert oriented 3, no focal signs Psych:calm - Constitutional Vitals: Temp Pulse Resp BP Pulse Ox 98.1 F 78 16 128/78 98 10/14/16 16:00 10/14/16 16:00 10/14/16 16:00 10/14/16 16:00 10/14/16 08:00 Plan Activity: no restrictions Diet: low salt Additional Instructions: 1.Follow up with PCP in 1 week. 2.Follow up with Dr. Adorno in 1 week Follow up with: PRIMARY CARE, [Primary Care Provider] - 3-5 Days Prescriptions: amLODIPine [Norvasc] 5 mg PO QDAY #30 tablet Levofloxacin [Levaquin TAB] 500 mg PO QDAY #7 tablet traMADol [Ultram 50 MG tab] 50 mg PO Q6HR PRN #30 tablet PRN Reason: Pain
== END 2016-10-14 19:00 | disposition home or self-care (01) | DRG 603 ==
LOC: ED 13:58 → 3A 10-12 02:40
PROVIDERS: ADMIT Internal Medicine; ATTEND Internal Medicine
DX: L03.012 Cellulitis of left finger (principal); I96 Gangrene, not elsewhere classified; I16.0 Hypertensive urgency; I10 Essential (primary) hypertension; L81.9 Disorder of pigmentation, unspecified; Z82.49 Family history of ischemic heart disease and other diseases of the circulatory system
CPT/HCPCS: 36415; 71275; 80048; 82550; 82962; 83036; 85025; 85652; 86140; 87040; 87076; 87116; 87186; 90686; 93005; 93010; 93306; 96365; 96374; 96375; J0360; J1650; J2270; J2405; J2543; Q9967

== ENCOUNTER 2016-12-21 18:46 | Inpatient (IN) | payer SELFPAY ==
[2016-12-21 21:04] LABS: Basophils % (Auto) 0.6 % (0.0-1.8); Eosinophils % (Auto) 1.8 % (0.0-4.3); Hematocrit 32.6 % (30.3-42.9); Hemoglobin 10.6 gm/dl (10.1-14.3); Mean Corpuscular HGB Conc 33 % (30-34); Mean Corpuscular Hemoglobin 27 pg (28-32); Mean Corpuscular Volume 84 fl (79-97); Platelet Count 302 K/mm3 (140-440); Red Blood Count 3.88 M/mm3 (3.65-5.03); Red Cell Distribution Width 15.8 % (13.2-15.2)
[2016-12-21 21:27] LABS: Anion Gap 17 mmol/L; BUN/Creatinine Ratio 16.66; Blood Urea Nitrogen 15 mg/dL (7-17); Calcium 8.6 mg/dL (8.4-10.2); Carbon Dioxide 24 mmol/L (22-30); Chloride 104.8 mmol/L (98-107); Glucose 96 mg/dL (65-100); Potassium 3.4 mmol/L (3.6-5.0); Sodium 142 mmol/L (137-145)
--- NOTE | 2016-12-22 00:21 | Emergency Department Report ---
Upper Extremity - HPI Chief Complaint: Extremity Problem,Nontraumatic Stated Complaint: BACTERIAL INFECTION/LEFT HAND Time Seen by Provider: 12/21/16 23:40 Upper Extremity: Left Hand (pain that feels burning), Left Index Finger ( discoloration of finger she started 1 week ago.), Left Little Finger (discolored ) Occurred When: >5 Days Mechanism: Other (similar incident in the past) Severity: severe Symptoms: Yes Pain with Movement, Yes Limited Range of Movement (to fingers and hand due to pain. left hand), Yes Weakness (left hand), Yes Bruising/ Ecchymosis, No Deformity, No Numbness, No Swelling, No Laceration or Abrasion Other History: Patient presented to emergency room report that she is having pain to her left hand with discoloration of fingers. Patient was here on October and was treated per patient for bacterial infection patient Brianna she says she took all her antibiotic and is referred to a hand specialist. She says she could not afford this. Patient says she went to [place] and she was treated with penicillin. Initially she came in on October for discoloration of her left fist patient she said became blackened but then it got better. She says she now has noticed that the second digit to left hand is now getting discolored. She reports that her left hand is painful at 10 out of 10. She denies smoking. Denies any fever or chills. She reports there is an odor coming from her finger. She says she was told that she was pre diabetic a long time ago but her blood sugar stable and she is not taking medication. She also has a history of hypertension. Her last visit to the hospital she was seen by Dr. Burciaga's service who referred her to the hand specialist as outpatient. ED Review of Systems ROS: Stated complaint: BACTERIAL INFECTION/LEFT HAND Other details as noted in HPI Comment: All other systems reviewed and negative Constitutional: denies: chills, fever Respiratory: no symptoms reported Cardiovascular: denies: chest pain, palpitations, edema, syncope Gastrointestinal: denies: abdominal pain, nausea, vomiting Skin: change in color (to fingers with pain to left hand) Neurological: denies: headache, numbness, paresthesias, confusion ED Past Medical Hx - Past Medical History Previous Medical History?: Yes Hx Hypertension: No Hx Congestive Heart Failure: No Hx Diabetes: Yes (boderline) Hx Sickle Cell Disease: Yes (trait) Hx Asthma: No Hx HIV: No Additional medical history: preeclampsia - Surgical History Past Surgical History?: Yes Additional Surgical History: - Family History Family history: hypertension - Social History Smoking Status: Never Smoker Substance Use Type: Alcohol - Medications Home Medications: Home Medications Medication Instructions Recorded Confirmed Last Taken Type Levofloxacin [Levaquin TAB] 500 mg PO QDAY #7 tablet 10/14/16 Unknown Rx amLODIPine [Norvasc] 5 mg PO QDAY #30 tablet 10/14/16 Unknown Rx traMADol [Ultram 50 MG tab] 50 mg PO Q6HR PRN #30 tablet 10/14/16 Unknown Rx Upper Extremity Exam - Exam General: Vital signs noted. No distress. Alert and acting appropriately. This is a 51-year-old female who is very tearful complaining of pain to her left hand. Head and Torso: No HEENT Abnormality, No Neck Tenderness, No Chest/Lungs Abnormality, No Abdominal Tenderness, No Back Tenderness Shoulder Exam: Yes Normal Range of Motion in Shoulder, No Shoulder Tenderness, No Clavicle Tenderness, No Shoulder Deformity, No AC Joint Tenderness Arm Exam: No Arm/Humerus Tenderness, No Arm Deformity Elbow: Yes Normal Range of Motion in Elbow, No Elbow Tenderness, No Elbow Deformity Forearm: No Forearm Tenderness, No Forearm Deformity, No Pain with Pronation, No Pain with Supination Wrist: Yes Normal ROM in Wrist, No Wrist Tenderness, No Wrist Deformity Hand: Yes Hand Tenderness (to palms and fingers.), Yes Digit Tenderness (left second and fifth digits.), No Hand Deformity, No Normal ROM in Digit(s) (Sushil range of motion due to pain.), No Digit(s) Deformity, No Tendon Dysfunction CMS Exam: Yes Broken Skin (patient with cyanotic area to left second and fifth digits with blackened area to fingertips. This is at the second and fifth digit.), Yes Normal Distal Pulses, Yes Normal Distal Sensation (patient with normal temperature, sensation to left hand and fingers.), No Normal Capillary Refill (capillary refill to last second and fifth digit abnormal.) ED Course Vital Signs 12/21/16 20:49 Temperature 98.6 F Pulse Rate 80 Respiratory 20 Rate Blood Pressure 175/96 [Right] O2 Sat by Pulse 100 Oximetry Vital Signs 0412/22/16 12/22/16 20:49 01:00 01:01 Temperature 98.6 F Pulse Rate 80 Respiratory 20 18 18 Rate Blood Pressure 175/96 [Right] O2 Sat by Pulse 100 Oximetry - Reevaluation(s) Reevaluation #1: 12/22/16 02:30 patient here complaining of left hand infection to finger is with malodor. Labs drawn and sent, patient started on IV clindamycin. Vital signs are stable. Patient evaluated by Dr. Vail And it was decided that patient needs to be transferred to another facility for hand specialist. Patient started on IV fluids, morphine 4 mg IV given along with Zofran 4 mg IV. Reevaluation #2: 12/22/16 03:52 Patient is resting quietly. calls place to [facility] and awaiting callback from hand specialist. Reevaluation #3: 12/22/16 04:[address] Adorno who wants patient to be admitted by hospitalist. Dr. Haney notified and will admit patient Reevaluation #4: 12/22/16 05:[address] Haney just saw patient. pain is better. - Consultations Consultation #1: 12/22/16 03:[address] Nino from [facility] and she belves patient has reynaulds and could be seen outpatient clinic on ED Medical Decision Making - Lab Data Result diagrams: 12/21/16 20:53 12/21/16 20:53 Lab Results 12/21/16 12/21/16 12/22/16 Range/Units 20:53 20:53 00:41 WBC 10.0 (4.5-11.0) K/mm3 RBC 3.88 (3.65-5.03) M/mm3 Hgb 10.6 (10.1-14.3) gm/dl Hct 32.6 (30.3-42.9) % MCV 84 (79-97) fl MCH 27 L (28-32) pg MCHC 33 (30-34) % RDW 15.8 H (13.2-15.2) % Plt Count 302 (140-440) K/mm3 Lymph % (Auto) 21.9 (13.4-35.0) % [place] % (Auto) 4.8 (0.0-7.3) % Eos % (Auto) 1.8 (0.0-4.3) % Baso % (Auto) 0.6 (0.0-1.8) % Lymph # 2.2 (1.2-5.4) K/mm3 [place] # 0.5 (0.0-0.8) K/mm3 Eos # 0.2 (0.0-0.4) K/mm3 Baso # 0.1 (0.0-0.1) K/mm3 Seg Neutrophils % 70.9 H (40.0-70.0) % Seg Neutrophils # 7.1 (1.8-7.7) K/mm3 Sodium 142 (137-145) mmol/L Potassium 3.4 L (3.6-5.0) mmol/L Chloride 104.8 (98-107) mmol/L Carbon Dioxide 24 (22-30) mmol/L Anion Gap 17 mmol/L BUN 15 (7-17) mg/dL Creatinine 0.9 (0.7-1.2) mg/dL Estimated GFR > 60 ml/min BUN/Creatinine Ratio 16.66 % Glucose 96 (65-100) mg/dL Lactic Acid 0.8 (0.7-2.0) mmol/L Calcium 8.6 (8.4-10.2) mg/dL C-Reactive Protein (0.00-1.30) mg/dL HCG, Qual (Negative) 12/22/16 12/22/16 Range/Units 00:41 00:41 WBC (4.5-11.0) K/mm3 RBC (3.65-5.03) M/mm3 Hgb (10.1-14.3) gm/dl Hct (30.3-42.9) % MCV (79-97) fl MCH (28-32) pg MCHC (30-34) % RDW (13.2-15.2) % Plt Count (140-440) K/mm3 Lymph % (Auto) (13.4-35.0) % [place] % (Auto) (0.0-7.3) % Eos % (Auto) (0.0-4.3) % Baso % (Auto) (0.0-1.8) % Lymph # (1.2-5.4) K/mm3 [place] # (0.0-0.8) K/mm3 Eos # (0.0-0.4) K/mm3 Baso # (0.0-0.1) K/mm3 Seg Neutrophils % (40.0-70.0) % Seg Neutrophils # (1.8-7.7) K/mm3 Sodium (137-145) mmol/L Potassium (3.6-5.0) mmol/L Chloride (98-107) mmol/L Carbon Dioxide (22-30) mmol/L Anion Gap mmol/L BUN (7-17) mg/dL Creatinine (0.7-1.2) mg/dL Estimated GFR ml/min BUN/Creatinine Ratio % Glucose (65-100) mg/dL Lactic Acid (0.7-2.0) mmol/L Calcium (8.4-10.2) mg/dL C-Reactive Protein 0.80 (0.00-1.30) mg/dL HCG, Qual Negative (Negative) - Radiology Data Radiology results: report reviewed X-ray of the left hand reveals soft tissue swelling over the distal phalanx fifth digit with slight localizes osteopenia and a small lucency through the distal phalanx possibly representing a stress fracture. The remainder of the osseous structure appears intact. - Medical Decision Making I collaborated with Dr. Vail on patient presentation to the emergency room, clinical findings and previous history of similar incident. Plan was to give patient transferred revealing no transfer facility available therefore Dr. Gay saw patient in October instructed to admit patient and he will see patient in the morning. ED course: Patient here. Complains of discolored left second and fifth digits to the hand. He was here on December 10, 2016 and was treated with similar issues by Dr. Burciaga's service. Patient was discharged home on antibiotic and Ultram and is told to follow up with outpatient hand specialist. That she could not afford it so she went to [facility] and is associated to care for and while she was there she had penicillin. She noticed 1 week ago that the second digit to left hand. Skin discolored and she is having excruciating pain at 10 out of 10. Patient was started on IV fluid, clindamycin 900 mg IV, morphine 4 mg IV along with Zofran 4 mg IV. He said her pain was better. She was later given Percocet 5/3/20/25 one tablet to prevent pain from worsening. I spoke with Dr. Gay who is orthopedic on Dr. Burciaga's service and he wants hospitalist to admit patient and to consult with him. Dr. Haney notified and she saw and examined patient and patient awaiting available room. Patient stable lab work does not reveal any infection, x-ray results noted. Blood cultures are pending. I discussed plan with patient for admission and she is in agreement. Patient is stable in no acute distress at present Critical care attestation.: If time is entered above; I have spent that time in minutes in the direct care of this critically ill patient, excluding procedure time. ED Disposition Clinical Impression: Cyanosis of fingertip, Cellulitis of finger of left hand, Gangrene of finger, Arthralgia of left hand Disposition: DISCHARGED TO HOME OR SELFCARE Is pt being admited?: Yes Does the pt Need Aspirin: No Condition: Stable
[2016-12-22] MEDS ORDERED: TORADOL IV ONE (00:27)
[2016-12-22] MEDS ORDERED: ZOFRAN IV ONE (00:27)
[2016-12-22] MEDS ORDERED: NACL 0.9% 1000 ML 1,000 ML IV ONE (00:27)
[2016-12-22] MEDS ORDERED: MORPHINE IM ONE (00:27)
--- NOTE | 2016-12-22 01:04 | XRay Report ---
FINAL REPORT PROCEDURE: XR HAND 3 LT TECHNIQUE: LEFT hand radiographs, AP, lateral, and oblique views. CPT 66648-CB HISTORY: lt hand pain with necrosis of fingers COMPARISON: No prior studies FINDINGS: Soft tissue swelling identified over the distal 5th digit is noted. This may be related to trauma. There is slight localized osteopenia in the distal phalanx of the 5th digit. A small lucency in this region may represent a nondisplaced stress fracture in this region. The remaining osseous structures are intact without fracture or dislocation. The soft tissues of the remainder of the hand are normal. No radiopaque foreign object. IMPRESSION: Soft tissue swelling over the distal phalanx 5th digit with slight localized osteopenia and a small lucency through the distal phalanx possibly representing a stress fracture, sequelae from trauma is plausible. The remainder of the osseous structures appear intact..
[2016-12-22] MEDS ORDERED: CLEOCIN 900 MG/50 mL 900 MG/50 ML BAG IV ONE (01:40)
[2016-12-22] MEDS ORDERED: ZOFRAN IV PRN (05:47)
[2016-12-22] MEDS ORDERED: MILK OF MAGNESIA PO PRN (05:47)
[2016-12-22] MEDS ORDERED: TYLENOL PO PRN (05:47)
[2016-12-22] MEDS ORDERED: DULCOLAX PR PRN (05:47)
--- NOTE | 2016-12-22 05:51 | History and Physical Report ---
History of Present Illness Date of examination: 12/22/16 History of present illness: 51 year old woman with history of borderline diabetes comes to the emergency room for worsening discolration of her fingers.The patient was admitted on the on October 12 for pain and discoloration of the left 5th digit. She states she completed antibiotic. Patient was in [place], while she was there she was taking penicillin. She noticed that the second 2 fourth digits were becoming discolored, fourth digit became blackened at the tip. She denies any exposure to hepatitis, symptoms are sometimes exacerbated by the cold Patient denies chest pain, palpitation, shortness of breath, cough, abdominal pain, hematochezia, dysuria, frequency, focal weakness, dysarthria, fever chills , polydipsia polyuria, hot or cold intolerance, easy bruisability, or rash or bleeding from mucosal membrane, rhinorrhea, epistaxis, earache, tinnitus, blurry vision, eye discharge, anxiety, depression. Other review of systems negative PAST SURGICAL HISTORY:None SOCIAL HISTORY:Denies alcohol, tobacco and drugs FAMILY HISTORY:Hypertension Medications and Allergies Allergies Allergy/AdvReac Type Severity Reaction Status Date / Time No Known Allergies Allergy Verified 12/22/16 05:52 Home Medications Medication Instructions Recorded Confirmed Last Taken Type Levofloxacin [Levaquin TAB] 500 mg PO QDAY #7 tablet 10/14/16 Unknown Rx amLODIPine [Norvasc] 5 mg PO QDAY #30 tablet 10/14/16 Unknown Rx traMADol [Ultram 50 MG tab] 50 mg PO Q6HR PRN #30 tablet 10/14/16 Unknown Rx Exam - Physical Exam Narrative exam: Gen. appearance: Patient lying in bed, no apparent distress HEENT: Normocephalic, atraumatic, pupils equally round and reactive to light, extraocular movement intact, and no sclericterus,. No JVD or thyromegaly or nodule,neck supple, no carotid bruit ,mucous membranes moist, no exudate or erythema Heart: S1, S2, regular rate and rhythm Lungs: Clear to auscultation bilaterally, breathing comfortable Abdomen: Positive bowel sounds, nontender, nondistended, no organomegaly Extremity: Left 2nd to 5th digit swollen, tender, blackened at the tips (2nd and 5th),the 2nd and 3rd has a blue-reddish lacy color, No edema, clubbing Skin: No rash, nodules, warm, dry Neuro: Oriented 3, cranial nerves II-12 intact, speech is fluent, motor and sensory intact - Constitutional Vitals: Temp Pulse Resp BP Pulse Ox 98.6 F 80 18 175/96 100 12/21/16 20:49 12/21/16 20:49 12/22/16 01:01 12/21/16 20:49 12/21/16 20:49 Results - Labs CBC & Chem 7: 12/21/16 20:53 12/21/16 20:53 Labs: Abnormal lab results 12/21/16 12/21/16 Range/Units 20:53 20:53 MCH 27 L (28-32) pg RDW 15.8 H (13.2-15.2) % Seg Neutrophils % 70.9 H (40.0-70.0) % Potassium 3.4 L (3.6-5.0) mmol/L Assessment and Plan Cyanosis of the fingers, ?Kendal Cheung Hypertension malignant History of borderline diabetes Admit to medicine Start IV clindamycin, consult surgery Obtain hepatitis profile, esr increase Norvasc, start percocet start DVT prophylaxis Will need lands resource manager evaluation, discussed with patient
[2016-12-22] MEDS: CLEOCIN 600 MG/50 mL 600 MG/50 ML BAG IV SCH ×3 (06:27→21:49)
--- NOTE | 2016-12-22 07:19 | Admit Criteria Form ---
Admission Criteria Documentation: WOUND COMPLICATIONS Clinical Indications for Inpatient Care (Place 'X' for any and all applicable criteria): Ongoing inpatient care may be indicated for wound complications with ANY ONE of the following (1) (15): [X ]I. Infection with ANY ONE of the following(32)(33): [ ]a) Temperature greater than 38.5 C (101.3 F) [X ]b) Evidence of tissue necrosis [ ]c) Erythema diameter expanding around wound despite treatment [ ]d) Mental status changes [ ]e) Dehydration [ ]f) Bacteremia [ ]g) Hemodynamic instability [ ]h) Suspected necrotizing fasciitis [ ]i) Rapidly spreading lesions [ ]j) High-risk location (eg, perineum, sternum, orbit) [ ]k) High-risk coexisting clinical condition as indicated by ANY ONE of the following: [ ]i) Poorly controlled diabetes [ ]ii) Cirrhosis [ ]iii) Renal failure [ ]iv) Neutropenia [ ] v) Asplenia [ ]vi) Immunosuppression (eg, AIDS, chronic corticosteroid use) [ ]viii) Other high-risk medical comorbidities [ ] II. Dehiscence requiring frequent monitoring or immediate treatment [ ] III. Hematoma with ANY ONE of the following: [ ]a) Hemodynamic instability or acute anemia due to rapid development of hematoma [ ]b) Neck hematoma causing airway compression [ ]c) Retroperitoneal hematoma [ ]d) Uncontrolled coagulopathy [ ]IV. Seroma with evidence of secondary infection and requirement for IV antibiotics [D](31) [ ]V. Pain that cannot be managed at lower level of care Extended stay beyond goal length of stay for primary condition may be needed until ALL of the following are present(1)(33)(34): [ ]a) Afebrile or fever resolving [ ]b) Hemodynamic stability [ ]c) Pain resolving [ ]d) Wound closed, continuity adequately restored, or wound manageable at lower level of care [ ]e) No drain needed or drain care manageable at lower level of care [ ]f) Wound hematoma or seroma resolving [ ]g) Antibiotics not needed or regimen manageable at lower level of care(38) [ ]h) Dressing care manageable at lower level of care [ ]i) Coagulopathy absent, resolved, or treatable at lower level of care [ ]j) Medical comorbidities resolved or treatable at lower level of care The original [facility] [employer] content created by [employer] has been revised. The portions of the content which have been revised are identified through the use of italic text or in bold, and Zulema Chun has neither reviewed nor approved the modified material. All other unmodified content is copyright [facility]. Please see references footnoted in the original [facility] edition 2016 Admission Criteria Met: Yes
[2016-12-22] MEDS ORDERED: FLUARIX QUAD 2016-2017(36 MOS+) IM ONE (09:01)
[2016-12-22] MEDS: LOVENOX SUB-Q SCH (10:07)
[2016-12-22] MEDS: NORVASC PO SCH (10:07)
[2016-12-22] MEDS ORDERED: APRESOLINE IV ONE (11:00)
--- NOTE | 2016-12-22 14:23 | Vascular Lab Report ---
LEFT UPPER EXTREMITY ARTERIAL DUPLEX: REASON FOR EXAM: Left finger gangrene. COMMENTS ON THE LEFT: Triphasic waveforms are seen proximally. Biphasic waveforms are seen distally. No significant velocity gradients are identified. No significant plaque is identified. Findings are consistent with normal perfusion. IMPRESSION: LEFT:Essentially normal arterial flow.
[2016-12-22] MEDS ORDERED: XYLOCAINE TOPICAL 2% TP PRN (14:58)
[2016-12-22] MEDS ORDERED: XYLOCAINE TOPICAL 2% TP ONE (16:00)
[2016-12-22] MEDS ORDERED: VANCOMYCIN PHARMACY TO DOSE IV SCH (16:00)
[2016-12-22] MEDS: PERCOCET 5/325 PO PRN (17:28)
[2016-12-22] MEDS ORDERED: VANCOMYCIN VIAL IV SCH (22:00)
[2016-12-22] MEDS ORDERED: VANCOMYCIN 1,500 MG in NACL 0.9% 500 ML 500 ML IV ONE (22:00)
[2016-12-23] MEDS: PERCOCET 5/325 PO PRN (05:47)
[2016-12-23] MEDS: CLEOCIN 600 MG/50 mL 600 MG/50 ML BAG IV SCH ×3 (05:49→21:14)
--- NOTE | 2016-12-23 07:38 | Consultation ---
History of Present Illness - HPI Consult date: 12/23/16 Consult reason: joint pain Medications and Allergies Allergies Allergy/AdvReac Type Severity Reaction Status Date / Time No Known Allergies Allergy Verified 12/22/16 05:52 Home Medications Medication Instructions Recorded Confirmed Last Taken Type Levofloxacin [Levaquin TAB] 500 mg PO QDAY #7 tablet 10/14/16 12/22/16 Unknown Rx amLODIPine [Norvasc] 5 mg PO QDAY #30 tablet 10/14/16 12/22/16 Unknown Rx Active Meds: Active Medications Acetaminophen (Tylenol) 650 mg PO Q4H PRN PRN Reason: Pain MILD(1-3)/Fever >100.5/SARABIA Last Admin: 12/22/16 21:50 Dose: 650 mg Amlodipine Besylate (Norvasc) 10 mg PO QDAY [facility] Last Admin: 12/22/16 10:07 Dose: 10 mg Bisacodyl (Dulcolax) 10 mg GA QDAY PRN PRN Reason: Constipation unrelieved by MOM Enoxaparin Sodium (Lovenox) 40 mg SUB-Q QDAY [facility] Last Admin: 12/22/16 10:07 Dose: 40 mg Clindamycin HCl (Cleocin 600 Mg/50 Ml) 600 mg in 50 mls @ 100 mls/hr IV Q8HR [facility] PRN Reason: Protocol Last Admin: 12/23/16 05:49 Dose: 100 mls/hr Vancomycin HCl (Vancomycin/Ns 1 Gm/250 Ml) 1 gm in 250 mls @ 166.667 mls/hr IV Q12H [facility] Lidocaine (Xylocaine Topical 2%) 1 applic TP Q4H PRN PRN Reason: finger tip pain Magnesium Hydroxide (Milk Of Magnesia) 30 ml PO Q4H PRN PRN Reason: Constipation Last Admin: 12/22/16 12:34 Dose: 30 ml Ondansetron HCl (Zofran) 4 mg IV Q8H PRN PRN Reason: N/V unrelieved by Reglan Oxycodone/Acetaminophen (Percocet 5/325) 1 tab PO Q6H PRN PRN Reason: Pain, Moderate (4-6) Last Admin: 12/23/16 05:47 Dose: 1 tab Potassium Chloride (K-Dur) 20 meq PO QDAY [facility] Vancomycin HCl (Vancomycin Pharmacy To Dose) 1 each IV PKCONSULT GRABIEL PRN Reason: Protocol Assessment and Plan 51 year old woman with history of borderline diabetes comes to the emergency room for worsening discoloration of her fingers.The patient was admitted on the on October 12 for pain and discoloration of the left 5th digit. She states she completed antibiotic. Patient was in [place], while she was there she was taking penicillin. She noticed that the second 2 fourth digits were becoming discolored, fourth digit became blackened at the tip. 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 at that point she was recomended to follow with a cable former and to wait for demarcation of the digit. she is seen now 6 weeks later because of exacerbation of hand pain, and changes on the index finger. Both the left index, and little fingers show ischemic necrosis, dry gangrene of the tips. demarcation to base of fingernail. no signs of infection. Imp Ischemic necrosis of fingertips Rec Sympathetic left arm/hand block Calcium channel blockers, Rheumatological consultation Will require eventual amputation of tips of digits.
[2016-12-23 08:25] LABS: Basophils % (Auto) 0.6 % (0.0-1.8); Eosinophils % (Auto) 2.1 % (0.0-4.3); Hematocrit 29.5 % (30.3-42.9); Hemoglobin 9.8 gm/dl (10.1-14.3); Mean Corpuscular HGB Conc 33 % (30-34); Mean Corpuscular Hemoglobin 28 pg (28-32); Mean Corpuscular Volume 83 fl (79-97); Platelet Count 310 K/mm3 (140-440); Red Blood Count 3.55 M/mm3 (3.65-5.03); Red Cell Distribution Width 16.2 % (13.2-15.2)
[2016-12-23 08:46] LABS: Anion Gap 17 mmol/L; BUN/Creatinine Ratio 12.85; Blood Urea Nitrogen 9 mg/dL (7-17); Calcium 8.6 mg/dL (8.4-10.2); Carbon Dioxide 23 mmol/L (22-30); Chloride 104.3 mmol/L (98-107); Glucose 98 mg/dL (65-100); Potassium 3.8 mmol/L (3.6-5.0); Sodium 140 mmol/L (137-145)
[2016-12-23] MEDS: VANCOMYCIN/NS 1 GM/250 ML 1 GM/250 ML BAG IV SCH ×2 (09:55→21:55)
[2016-12-23] MEDS: LOVENOX SUB-Q SCH (09:56)
[2016-12-23] MEDS: K-DUR PO SCH (09:56)
[2016-12-23] MEDS: NORVASC PO SCH (09:56)
--- NOTE | 2016-12-23 10:27 | Progress Note ---
Subjective Date of service: 12/23/16 Principal diagnosis: left hand ischemia/necrosis, acute pain Interval history: Left Upper Extremity Nerve Block: Patient is a 51 yo F with borderline DM and HTN. Developed ischemia of fingers on left hand. Dr. Adorno has requested a consult for a nerve block of patient' s left hand to help with pain. Pain currently 10/10 and is aching and throbbing. Patient consented for nerve block with risk and benefits explained and agrees to proceed. Nerve block performed in pre-op with administrative assistant data entry Alexa Pena. Monitors applied including oxygen, BP cuff, EKG monitoring and pulse oximetry. Patient given 2mg of Versed and 100mcg fentanyl. Ultrasound applied to supraclavicular area and landmarks identified. Skin infiltrated with 2cc of 1 % lidocaine. 21 gauge 4 inch stimulating needle then inserted. Stimulation of hand obtained with loss of twitch below 0.5mAmp but above 0.3. 30ml of 0.125% Bupivacaine with epi injected with 8mg of decadron. Normal resistance and negative aspiration. Tolerated well. Objective - Constitutional Vitals: Vital Signs - 12hr 12/23/16 07:00 Temperature 97.1 F L Pulse Rate [ 79 From Monitor] Respiratory 16 Rate Blood Pressure 140/85 [Left Arm] O2 Sat by Pulse 99 Oximetry - Labs CBC & Chem 7: 12/23/16 08:08 12/23/16 08:08 Labs: Abnormal lab results 12/22/16 12/22/16 12/23/16 Range/Units 11:00 16:27 08:08 RBC 3.55 L (3.65-5.03) M/mm3 Hgb 9.8 L (10.1-14.3) gm/dl Hct 29.5 L (30.3-42.9) % RDW 16.2 H (13.2-15.2) % Seg Neutrophils % 70.9 H (40.0-70.0) % POC Glucose 115 H 155 H (70-105)
[2016-12-23] MEDS ORDERED: VERSED ONE (10:43)
[2016-12-23] MEDS ORDERED: NACL 0.9% 1000 ML 1,000 ML ONE (10:43)
[2016-12-23] MEDS ORDERED: MARCAINE-EPI 0.25%-1:200,000 INFILTRATI ONE (10:45)
[2016-12-23] MEDS ORDERED: SUBLIMAZE ONE (10:45)
[2016-12-23] MEDS ORDERED: DECADRON ONE (10:46)
[2016-12-23] MEDS ORDERED: XYLOCAINE 1% 20 mL ONE (11:04)
[2016-12-23] MEDS ORDERED: SUBLIMAZE IV NR (11:28)
[2016-12-23] MEDS ORDERED: MARCAINE-EPI 0.25%-1:200,000 INFILTRATI NR (11:34)
[2016-12-23] MEDS ORDERED: DECADRON IV NR (11:35)
[2016-12-23] MEDS ORDERED: NACL 0.9% 1000 ML 1,000 ML IV SCH (12:00)
[2016-12-23] MEDS ORDERED: VERSED IV NR (12:00)
--- NOTE | 2016-12-23 13:31 | Progress Note ---
Assessment and Plan 51 year old woman with history of borderline diabetes comes to the emergency room for worsening discoloration of her left fingers.The patient was admitted on the on October 12 for pain and discoloration of the left 5th digit and was discharged with abx. She states that she completed antibiotic but she continue to have second 2 fourth digits discoloration and blackened fourth digit tip. She is admitted for exacerbation of hand pain, and changes on the index finger. Ischemic necrosis of the fingers Hypertension malignant History of borderline diabetes -cont IV clindamycin, - monitor BP and adjust meds as needed -continue Calcium channel donovan for now -Will need it business systems analyst evaluation, discussed with patient -orthopedics recommended Sympathetic left arm/hand block -May need eventual amputation of tips of digits. Subjective Date of service: 12/23/16 Principal diagnosis: left hand ischemia/necrosis, acute pain Interval history: Pt seen and examined c/o left hand pain Objective - Exam Narrative Exam: Gen. appearance: Patient lying in bed, no apparent distress HEENT: Normocephalic, atraumatic, pupils equally round and reactive to light, Heart: S1, S2, regular rate and rhythm Lungs: Clear to auscultation bilaterally, breathing comfortable Abdomen: Positive bowel sounds, nontender, nondistended, no organomegaly Extremity: Left 2nd to 5th digit swollen, tender, blackened at the tips (2nd and 5th),the 2nd and 3rd has a blue-reddish lacy color, No edema, clubbing Skin: No rash, nodules, warm, dry Neuro: Oriented 3, speech is fluent, motor and sensory intact - Constitutional Vitals: Vital Signs - 12hr 12/23/16 12/23/16 12/23/16 07:00 11:02 11:06 Temperature 97.1 F L Pulse Rate 76 81 Pulse Rate [ 79 From Monitor] Respiratory 16 15 12 Rate Blood Pressure 157/86 149/85 Blood Pressure 140/85 [Left Arm] O2 Sat by Pulse 99 100 100 Oximetry 12/23/16 12/23/16 12/23/16 11:11 11:16 11:21 Temperature Pulse Rate 81 74 77 Pulse Rate [ From Monitor] Respiratory 16 15 13 Rate Blood Pressure 132/74 138/72 126/63 Blood Pressure [Left Arm] O2 Sat by Pulse 100 100 100 Oximetry 04/20/17 04/20/17 04/20/17 11:27 11:31 11:39 Temperature 97.1 F L Pulse Rate 73 78 77 Pulse Rate [ From Monitor] Respiratory 16 15 14 Rate Blood Pressure 120/57 119/56 Blood Pressure [Left Arm] O2 Sat by Pulse 99 100 100 Oximetry 12/23/16 11:44 Temperature Pulse Rate 71 Pulse Rate [ From Monitor] Respiratory 15 Rate Blood Pressure 125/57 Blood Pressure [Left Arm] O2 Sat by Pulse 100 Oximetry - Labs CBC & Chem 7: 12/23/16 08:08 12/23/16 08:08 Labs: Abnormal lab results 12/22/16 12/23/16 12/23/16 Range/Units 16:27 08:08 12:38 RBC 3.55 L (3.65-5.03) M/mm3 Hgb 9.8 L (10.1-14.3) gm/dl Hct 29.5 L (30.3-42.9) % RDW 16.2 H (13.2-15.2) % Seg Neutrophils % 70.9 H (40.0-70.0) % POC Glucose 155 H 116 H (70-105)
[2016-12-24] MEDS: CLEOCIN 600 MG/50 mL 600 MG/50 ML BAG IV SCH (05:52)
[2016-12-24] MEDS: PERCOCET 5/325 PO PRN (07:58)
--- NOTE | 2016-12-24 10:31 | Discharge Summary ---
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 She states that she completed antibiotic but she continue to have second 2 fourth digits discoloration and blackened fourth digit tip. She is admitted for exacerbation of hand pain, and changes on the index finger. Discharge Diagnosis and management: Ischemic necrosis of the fingers - cont clindamycin -Will need customs guard evaluation, discussed with patient -s/p Sympathetic left arm/hand block to control pain -May need eventual amputation of tips of digits. - f/u with orthopedics outpt Hypertension malignant -continue Calcium channel donovan for now - BP improved History of borderline diabetes - ADA diet Disposition: DISCHARGED TO HOME OR SELFCARE Time spent for discharge: 32 minutes Core Measure Documentation - Palliative Care Palliative Care/ Comfort Measures: Not Applicable - Core Measures Any of the following diagnoses?: none Exam - Physical Exam Narrative exam: Gen. appearance: Patient lying in bed, no apparent distress HEENT: Normocephalic, atraumatic, pupils equally round and reactive to light, Heart: S1, S2, regular rate and rhythm Lungs: Clear to auscultation bilaterally, breathing comfortable Abdomen: Positive bowel sounds, nontender, nondistended, no organomegaly Extremity: Left 2nd to 5th digit swollen, tender, blackened at the tips (2nd and 5th),the 2nd and 3rd has a blue-reddish lacy color, No edema, clubbing Skin: No rash, nodules, warm, dry Neuro: Oriented 3, speech is fluent, motor and sensory intact - Constitutional Vitals: Temp Pulse Resp BP Pulse Ox 98.3 F 80 16 134/67 100 12/24/16 07:46 12/24/16 07:46 12/24/16 07:46 12/24/16 07:46 12/24/16 10:03 Plan Activity: advance as tolerated Diet: low fat, diabetic Follow up with: PRIMARY CARE,MD [Primary Care Provider] - 3-5 Days Prescriptions: amLODIPine [Norvasc] 10 mg PO QDAY #30 tablet oxyCODONE /ACETAMINOPHEN [Percocet 5/325 mg] 1 tab PO Q6H PRN #30 tablet PRN Reason: Pain, Moderate (4-6) Sulfamethoxazole/Trimethoprim [Bactrim DS TAB] 1 each PO BID #20 tablet
[2016-12-24] MEDS: LOVENOX SUB-Q SCH (11:12)
[2016-12-24] MEDS: NORVASC PO SCH (11:12)
[2016-12-24] MEDS: K-DUR PO SCH (11:13)
[2016-12-24] MEDS: VANCOMYCIN/NS 1 GM/250 ML 1 GM/250 ML BAG IV SCH (11:24)
[2016-12-24 11:49] VITALS: BP 142/76
== END 2016-12-24 15:40 | disposition home or self-care (01) | DRG 301 ==
LOC: ED 18:46 → 3A 12-22 05:47
PROVIDERS: ADMIT Internal Medicine; ATTEND Internal Medicine
PROC: 3E0T3CZ (ICD-10-PCS; principal; 2016-12-23)
DX: I96 Gangrene, not elsewhere classified (principal); R23.0 Cyanosis; I10 Essential (primary) hypertension; E11.9 Type 2 diabetes mellitus without complications; L60.8 Other nail disorders; M79.642 Pain in left hand; Z82.49 Family history of ischemic heart disease and other diseases of the circulatory system
CPT/HCPCS: 36415; 62273; 80048; 81025; 82140; 82962; 84703; 85025; 85652; 86140; 86705; 86706; 86803; 87040; 96361; 96365; 96375; J0360; J1100; J1650; J1885; J2250; J2270; J2405; J3010; J3370; J7030; J7040